=== PATIENT | female | born 2005 | race Caucasian/White ===

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

== ENCOUNTER 2024-10-25 05:15 | Emergency (ER) | payer BC ==
[2024-10-25 05:44] LABS: BASOPHILS ABSOLUTE AUTO 0.03 10^3/uL (0.00-0.50); BASOPHILS PERCENT AUTO 0.2 % (0-1); EOSINOPHILS ABSOLUTE AUTO 0.25 10^3/uL (0.00-1.50); EOSINOPHILS PERCENT AUTO 1.9 % (0-6); IMMATURE GRAN ABSOLUTE AUTO 0.03 10^3/uL (0.00-0.49); IMMATURE GRAN PERCENT AUTO 0.2 % (0.0-4.9); LYMPHOCYTES ABSOLUTE AUTO 3.62 10^3/uL (0.60-5.00); LYMPHOCYTES PERCENT AUTO 27.9 % (24-44); MONOCYTES ABSOLUTE AUTO 0.96 10^3/uL (0.00-1.50); MONOCYTES PERCENT AUTO 7.4 % (0-10); NEUTROPHILS ABSOLUTE AUTO 8.07 x10^3/uL (1.80-8.00); NEUTROPHILS PERCENT AUTO 62.4 % (41-71); PLATELET COUNT,PLT 258 10^3/uL (150-400); RED BLOOD CELL COUNT 4.07 x10^6/uL (4.00-5.50); WHITE BLOOD CELL COUNT,WBC 13.0 10^3/uL (4.0-11.0)
[2024-10-25] MEDS: fentaNYL 50 MCG/ML SDV IVPUSH ONE (05:56)
[2024-10-25] MEDS: Ondansetron 4 MG/2 ML SDV IVPUSH STA (05:56)
[2024-10-25 05:57] LABS: ALANINE AMINOTRANSFERASE,ALT 18 U/L (12-78); ASPARTATE AMNIOTRANSFERASE,AST 14 U/L (15-37); BILIRUBIN TOTAL 0.4 mg/dL (0.0-1.0); BLOOD UREA NITROGEN,BUN 14 mg/dL (7-18); CARBON DIOXIDE,CO2 27 mmol/L (21-32); CHLORIDE,CL 102 mEq/L (98-106); CREATININE 0.9 mg/dL (0.6-1.0); GLUCOSE RANDOM 88 mg/dL (75-99); POTASSIUM,K 3.7 mEq/L (3.5-5.0); PROTEIN TOTAL,TP 6.7 g/dL (6.4-8.2); SODIUM,NA 139 mEq/L (136-145)
[2024-10-25 05:58] LABS: ESTIMATED GFR 94 mL/min (>=60)
[2024-10-25 06:05] LABS: APPEARANCE,URINE CLEAR (CLEAR); GLUCOSE,URINE NEGATIVE (NEGATIVE); OCCULT BLOOD,URINE TRACE-INTACT (NEGATIVE)
[2024-10-25 06:06] LABS: EPITHELIAL CELLS,URINE FEW /HPF (NOT SEEN)
[2024-10-25] MEDS: Iopamidol 755 Mg/ML 100 ML Bottle IVPUSH ONE (07:12)
[2024-10-25 08:00] VITALS: BP 121/65; PULSE 67
== END 2024-10-25 09:45 ==
LOC: CC.ED 05:15
DX: K37 Unspecified appendicitis (principal); F17.290 Nicotine dependence, other tobacco product, uncomplicated; Z88.0 Allergy status to penicillin; Z88.8 Allergy status to other drugs, medicaments and biological substances; Z79.899 Other long term (current) drug therapy
CPT/HCPCS: 36415; 74177; 80053; 81001; 81025; 85025; 86140; 96361; 96374; 96375; 96376; 99284; 99285-25; J1171; J2405; J3010; J7030; Q9967